=== PATIENT | female | born 1980 | race Caucasian/White ===

== ENCOUNTER 2022-01-22 11:45 | Outpatient (CLI) | payer OTHER ==
--- NOTE | 2022-01-22 12:42 | XRAY Report ---
PROCEDURE: Tib/Fib LT INDICATIONS: L LOWER LIMB PX TECHNIQUE: 2 views of the tibia and fibula were acquired. COMPARISON: None. FINDINGS: BONES: No acute, displaced fracture or dislocation. SOFT TISSUES: Diffuse edema. IMPRESSION: 1.No acute osseous abnormality. Reviewed by: Lee Samayoa MD on 01/22/2022 12:40 PM PDT Approved by: Lee Samayoa MD on 01/22/2022 12:40 PM PDT Station ID: [id number]
== END 2022-01-22 23:59 | disposition home or self-care (01) ==
LOC: DI.N 11:45
PROVIDERS: ATTEND Registered Nurse
DX: M79.605 Pain in left leg (principal)

== ENCOUNTER 2022-07-18 08:46 | Outpatient (CLI) | payer OTHER ==
[2022-07-18 12:01] LABS: BASOPHILS # (AUTO) 0.1 10^3/uL (0.0-0.1); BASOPHILS % (AUTO) 0.9 %; EOSINOPHILS # (AUTO) 0.1 10^3/uL (0.0-0.7); EOSINOPHILS % (AUTO) 1.4 %; HCT - HEMATOCRIT 44.2 % (37.0-47.0); HGB - HEMOGLOBIN 13.8 g/dL (12.0-16.0); LYMPHOCYTES # (AUTO) 1.6 10^3/uL (1.5-3.5); LYMPHOCYTES % (AUTO) 28.1 %; MEAN CORPUSCULAR HEMOGLOBIN 27.5 pg (27.0-31.0); MEAN CORPUSCULAR HGB CONC 31.2 g/dL (32.0-36.0); MEAN PLATELET VOLUME 11.9 fL (7.9-10.8); MONOCYTES # (AUTO) 0.5 10^3/uL (0.0-1.0); NEUTROPHILS # (AUTO) 3.4 10^3/uL (1.5-6.6); NEUTROPHILS % (AUTO) 61.2 %; PLT - PLATELET COUNT 261 10^3/uL (130-450); RED BLOOD COUNT 5.02 10^6/uL (4.20-5.40); RED CELL DISTRIBUTION WIDTH 13.6 % (12.0-15.0); WHITE BLOOD COUNT 5.6 x10^3/uL (4.8-10.8)
[2022-07-18 12:55] LABS: THYROID STIMULATING HORMONE 1.87 uIU/mL (0.34-5.60)
[2022-07-18 13:03] LABS: ALBUMIN 4.4 g/dL (3.2-5.5); ALBUMIN/GLOBULIN RATIO 1.7 (1.0-2.2); ALKALINE PHOSPHATASE 44 IU/L (42-121); ALT ALANINE AMINOTRANSFERASE 22 IU/L (10-60); AST ASPARTATE AMINOTRANSFERASE 23 IU/L (10-42); BILIRUBIN,TOTAL 0.6 mg/dL (0.2-1.0); BUN - BLOOD UREA NITROGEN 17 mg/dL (6-20); CALCIUM 9.3 mg/dL (8.5-10.3); CARBON DIOXIDE - CO2 26 mmol/L (21-32); CHLORIDE 102 mmol/L (101-111); CHOL/HDL RATIO 2.8 (<4.4); CHOLESTEROL 195 mg/dL; CREATININE 0.7 mg/dL (0.4-1.0); GFR - MDRD 91 (>89); GLUCOSE 89 mg/dL (70-100); HDL CHOLESTEROL 70 mg/dL; LDL CHOLESTEROL,CALCULATED 117 mg/dL; LDL/HDL RATIO 1.7 (<4.4); POTASSIUM 4.5 mmol/L (3.5-5.0); SODIUM 135 mmol/L (135-145); TRIGLYCERIDES 40 mg/dL; VLDL CHOLESTEROL 8 mg/dL
== END 2022-07-18 08:47 | disposition home or self-care (01) ==
LOC: LAB.N 08:46
PROVIDERS: ATTEND Physician Assistant Medical
DX: Z00.00 Encounter for general adult medical examination without abnormal findings (principal)
CPT/HCPCS: 36415; 80053; 80061; 83721; 84443; 85025

== ENCOUNTER 2022-09-17 10:03 | Outpatient (CLI) | payer OTHER ==
--- NOTE | 2022-09-17 14:37 | XRAY Report ---
PROCEDURE: Hips 2V BILAT INDICATIONS: BILATERAL HIP PX TECHNIQUE: 3 views of the hip were acquired. COMPARISON: None FINDINGS: Bones: No fractures or dislocations. Mild bilateral hip joint osteophytic changes are seen with supe rior joint space narrowing and subchondral sclerosis. No evidence of avascular necrosis of femoral he ad. No suspicious bony lesions. The visualized pelvic ring appears intact. Soft tissues: No suspicious soft tissue calcifications or masses. IMPRESSION: Mild bilateral hip joint osteoarthritis. No hip fracture or dislocation. No evidence of avascular nec rosis. Reviewed by: Luis Nina MD on 09/17/2022 2:35 PM PST Approved by: Luis Nina MD on 09/17/2022 2:35 PM PST Station ID: [id number]
== END 2022-09-17 10:04 | disposition home or self-care (01) ==
LOC: DI.N 10:03
PROVIDERS: ATTEND Physician Assistant Medical
DX: M16.0 Bilateral primary osteoarthritis of hip (principal)

== ENCOUNTER 2023-09-01 21:26 | Outpatient (CLI) | payer OTHER ==
--- NOTE | 2023-09-01 22:09 | Ultrasound Report ---
PROCEDURE: Duplex Ext Veins Right INDICATIONS: THROMBOPHLEBITIS TECHNIQUE: Real-time imaging, as well as color and pulse Doppler interrogation, were performed of the lower extr emity deep veins from the inguinal ligament to the popliteal fossa. Attempted visualization of the ca lf veins was performed. COMPARISON: None. FINDINGS: The deep veins are normally compressible, and free of intraluminal thrombus. Color and pu lse Doppler demonstrate normal phasic intraluminal flow. There is normal augmentation response to di stal compression maneuver. There is a small fluid collection noted on the lateral aspect of the knee measuring 2.8 x 0.3 x 1.4 c m in size. IMPRESSION: No deep venous thrombosis of the visualized lower extremity. Reviewed by: Kentrell Cassidy MD on 09/01/2023 10:08 PM [facility] Approved by: Kentrell Cassidy MD on 09/01/2023 10:08 PM [facility] Station ID: [id number]
== END 2023-09-01 21:27 | disposition home or self-care (01) ==
LOC: DI 21:26
PROVIDERS: ATTEND Family Medicine
DX: I80.3 Phlebitis and thrombophlebitis of lower extremities, unspecified (principal); M79.661 Pain in right lower leg

== ENCOUNTER 2023-10-17 07:32 | Outpatient (CLI) | payer OTHER ==
[2023-10-17 12:10] LABS: BASOPHILS # (AUTO) 0.1 10^3/uL (0.0-0.1); BASOPHILS % (AUTO) 1.3 %; EOSINOPHILS # (AUTO) 0.2 10^3/uL (0.0-0.7); EOSINOPHILS % (AUTO) 2.8 %; HCT - HEMATOCRIT 41.9 % (37.0-47.0); HGB - HEMOGLOBIN 13.3 g/dL (12.0-16.0); LYMPHOCYTES # (AUTO) 1.8 10^3/uL (1.5-3.5); MEAN CORPUSCULAR HEMOGLOBIN 27.7 pg (27.0-31.0); MEAN CORPUSCULAR HGB CONC 31.7 g/dL (32.0-36.0); MEAN CORPUSCULAR VOLUME 87.1 fL (81.0-99.0); MEAN PLATELET VOLUME 11.8 fL (7.9-10.8); MONOCYTES # (AUTO) 0.5 10^3/uL (0.0-1.0); MONOCYTES % (AUTO) 7.7 %; NEUTROPHILS # (AUTO) 3.6 10^3/uL (1.5-6.6); PLT - PLATELET COUNT 263 10^3/uL (130-450); RED BLOOD COUNT 4.81 10^6/uL (4.20-5.40); RED CELL DISTRIBUTION WIDTH 13.3 % (12.0-15.0); WHITE BLOOD COUNT 6.1 x10^3/uL (4.8-10.8)
[2023-10-17 12:22] LABS: ALBUMIN/GLOBULIN RATIO 1.6 (1.0-2.2); ALKALINE PHOSPHATASE 47 IU/L (42-121); ALT ALANINE AMINOTRANSFERASE 17 IU/L (10-60); AST ASPARTATE AMINOTRANSFERASE 16 IU/L (10-42); BILIRUBIN,TOTAL 0.5 mg/dL (0.2-1.0); BUN - BLOOD UREA NITROGEN 11 mg/dL (6-20); CALCIUM 9.1 mg/dL (8.5-10.3); CARBON DIOXIDE - CO2 29 mmol/L (21-32); CHLORIDE 103 mmol/L (101-111); CHOLESTEROL 175 mg/dL; CREATININE 0.6 mg/dL (0.6-1.3); GFR - MDRD 108 (>89); GLUCOSE 87 mg/dL (74-104); HDL CHOLESTEROL 59 mg/dL; LDL CHOLESTEROL,CALCULATED 102 mg/dL; LDL/HDL RATIO 1.7 (<4.4); MAGNESIUM 1.7 mg/dL (1.7-2.3); PHOSPHORUS 3.3 mg/dL (2.5-5.0); SODIUM 136 mmol/L (135-145); TOTAL PROTEIN 6.5 g/dL (6.4-8.9); TRIGLYCERIDES 70 mg/dL (48-352); VLDL CHOLESTEROL 14 mg/dL
[2023-10-17 12:35] LABS: THYROID STIMULATING HORMONE 1.79 uIU/mL (0.34-5.60)
== END 2023-10-17 07:33 | disposition home or self-care (01) ==
LOC: LAB.N 07:32
PROVIDERS: ATTEND Physician Assistant Medical
DX: Z00.00 Encounter for general adult medical examination without abnormal findings (principal); R00.2 Palpitations
CPT/HCPCS: 36415; 80053; 80061; 82670; 83001; 83721; 83735; 84100; 84443; 85025

== ENCOUNTER 2024-03-02 16:14 | Outpatient (CLI) | payer OTHER ==
[2024-03-02] MEDS ORDERED: DIATRIZOATE MEGLU/DIATRIZO SOD 30 ML BOTTLE PO ONE (16:17)
[2024-03-02] MEDS ORDERED: iohexoL-300 100 ML VIAL ONE (16:17)
[2024-03-02] MEDS: DIATRIZOATE MEGLU/DIATRIZO SOD 30 ML BOTTLE PO ONE (17:34)
[2024-03-02] MEDS: iohexoL-300 100 ML VIAL IVP ONE (17:35)
--- NOTE | 2024-03-03 09:09 | CT Report ---
PROCEDURE: Abdomen/Pelvis W INDICATIONS: RLQ ABDOMINAL PAIN CONTRAST: 100ml [id number] TECHNIQUE: After the administration of intravenous contrast, a CT scan of the abdomen and pelvis was performed. Images were recorded and evaluated at appropriate window settings. Reformats: coronal and sagittal. F or radiation dose reduction, the following was used: automated exposure control, adjustment of mA and /or kV according to patient size. COMPARISON: 01/22/2024 FINDINGS: Image quality: Diagnostic. Lower chest: Unremarkable. Liver: No solid mass. Gallbladder: No radiopaque stones or wall thickening. Biliary tree: No intrahepatic or extrahepatic dilation, accounting for age. Spleen: No splenomegaly. Pancreas: No pancreatic ductal dilation. Probable splenule adjacent to the pancreatic tail near the s plenic hilum. Adrenals: No adrenal nodule. Kidneys and ureters: No hydronephrosis. No renal cystic lesion which requires follow up. No solid mas s. Stomach, bowel and peritoneum: Stomach and small bowel are normal. Normal appendix. Colonic decompres maria esther and mild to moderate diverticulosis of the descending and sigmoid colon. Slight interval decreas e in wall thickening of a short segment of distal sigmoid colon and decrease in pericolonic inflammat ion. There is trace residual fascial thickening and pelvic fluid, also decreased. No free air. No abs cess formation.. Lymph nodes: No central or retroperitoneal adenopathy. Vessels: No infrarenal aortic aneurysm. Patent portal vein. PELVIS Reproductive organs: Anteverted uterus with lobulated margins suggesting myometrial fibroids.. Normal CT appearance of both ovaries. No adnexal mass or suspicious fluid collection. Bladder: No wall thickening or stone. Pelvic lymph nodes: No pelvic adenopathy by size criteria. Bones: No aggressive osseous abnormality. Other: No significant ventral or inguinal hernia. IMPRESSION: Resolving distal sigmoid diverticulitis. No evidence of developing complication. No new inflammation in the pelvis. Reviewed by: Alfreda Roberts MD on 03/03/2024 9:07 AM PDT Approved by: Alfreda Roberts MD on 03/03/2024 9:07 AM PDT Station ID: [id number]
== END 2024-03-02 16:15 | disposition home or self-care (01) ==
LOC: DI 16:14
PROVIDERS: ATTEND Physician Assistant Medical
DX: K57.32 Diverticulitis of large intestine without perforation or abscess without bleeding (principal)
CPT/HCPCS: 74177; Q9963; Q9967

== ENCOUNTER 2024-03-02 16:19 | Outpatient (CLI) | payer OTHER ==
[2024-03-02 16:33] LABS: BASOPHILS # (AUTO) 0.1 10^3/uL (0.0-0.1); BASOPHILS % (AUTO) 1.1 %; EOSINOPHILS # (AUTO) 0.1 10^3/uL (0.0-0.7); EOSINOPHILS % (AUTO) 1.5 %; HCT - HEMATOCRIT 39.3 % (37.0-47.0); HGB - HEMOGLOBIN 12.5 g/dL (12.0-16.0); LYMPHOCYTES # (AUTO) 2.2 10^3/uL (1.5-3.5); LYMPHOCYTES % (AUTO) 28.2 %; MEAN CORPUSCULAR HEMOGLOBIN 27.4 pg (27.0-31.0); MEAN CORPUSCULAR HGB CONC 31.8 g/dL (32.0-36.0); MEAN PLATELET VOLUME 11.4 fL (7.9-10.8); MONOCYTES # (AUTO) 0.6 10^3/uL (0.0-1.0); MONOCYTES % (AUTO) 7.3 %; NEUTROPHILS # (AUTO) 4.9 10^3/uL (1.5-6.6); NEUTROPHILS % (AUTO) 61.8 %; PLT - PLATELET COUNT 294 10^3/uL (130-450); RED BLOOD COUNT 4.57 10^6/uL (4.20-5.40); RED CELL DISTRIBUTION WIDTH 13.2 % (12.0-15.0); WHITE BLOOD COUNT 7.9 x10^3/uL (4.8-10.8)
== END 2024-03-02 16:20 | disposition home or self-care (01) ==
LOC: LAB 16:19
PROVIDERS: ATTEND Physician Assistant Medical
DX: K57.92 Diverticulitis of intestine, part unspecified, without perforation or abscess without bleeding (principal)
CPT/HCPCS: 36415; 85025

== ENCOUNTER 2024-03-04 21:07 | Outpatient (CLI) | payer OTHER ==
--- NOTE | 2024-03-05 11:58 | Ultrasound Report ---
PROCEDURE: Pelvic w/Transvaginal INDICATIONS: ABDOMINAL PAIN RLQ TECHNIQUE: Real-time scanning was performed of the pelvic organs, with image documentation. Additional endovagi nal scanning was necessary due to incomplete visualization of the adnexal and endometrial structures by transabdominal scanning. COMPARISON: CT abdomen/pelvis 03/02/2024, pelvic ultrasound 08/12/2016 FINDINGS: Uterus: Uterus is anteverted and normal in size at 9.3 x 5.5 x 6.5 cm. The myometrium is heterogene ous. The endometrium measures 13 mm in combined thickness. A midline posterior intramural fibroid m easures 2.5 x 2.4 x 3.0 cm, previously 1.7 x 1.3 x 1.8 cm on ultrasound from 08/12/2016. A right ante rior intramural fibroid measures 1.3 x 1.2 x 1.2 cm, new when compared to the prior ultrasound. Ovaries: The right ovary measures 4.1 x 1.3 x 2.3 cm, with a calculated ovarian volume of 6.2 cc. T he left ovary measures 3.5 x 2.1 x 3.4 cm, with a calculated ovarian volume of 12.9 cc. The ovaries have a normal sonographic appearance. Less than 12 follicles can be seen in each ovary. No adnexal masses are seen. A 2.5 x 2.0 x 2.8 cm left ovarian cyst with internal echoes is most likely a regress ing corpus luteal cyst or hemorrhagic cyst. No cystic lesions measuring greater than 3 cm. Other: No pathologic free abdominal or pelvic fluid. IMPRESSION: 1.Uterine fibroids have increased in size when compared to the remote ultrasound from 2015. Heterogen eous appearance of the myometrium may be related to fibroids although superimposed adenomyosis is not excluded. 2.Left ovarian 2.8 cm complex cyst, possibly hemorrhagic. Consider follow-up ultrasound in 6-12 weeks . Reviewed by: Timothy Gibson MD on 03/05/2024 11:57 AM PDT Approved by: Timothy Gibson MD on 03/05/2024 11:57 AM PDT Station ID: [id number]
== END 2024-03-04 21:08 | disposition home or self-care (01) ==
LOC: DI 21:07
PROVIDERS: ATTEND Physician Assistant Medical
DX: D25.1 Intramural leiomyoma of uterus (principal); N83.292 Other ovarian cyst, left side